=== PATIENT | female | born 1960 | race Caucasian/White ===

== ENCOUNTER 2024-05-31 09:47 | Outpatient (RCR) | payer OTHER, SELFPAY ==
[2024-05-31 10:10] VITALS: BP 160/90
[2024-05-31] MEDS: EVENITY 105 MG SC ×2 (10:23→10:25)
--- NOTE | 2024-05-31 10:36 | PTCARENOTE ---
Patient received first dose Evenity in doctors office. She reports that she developed welts around injection areas 2 days post injection. She took zrytec prior to todays appt. due to this. Patients blood pressure is elevated upon arrival. 180s/90s
on machine and 160s/90s manually. Patient appears anxious about shots today due to not having good experience for first dose. She also states that this happens after having coffee. She has a blood pressure cuff at home and I advised her to check it
once in morning before caffeine and once at night and keep a record. Will keep her thirty minutes post injections today to monitor for any reaction.
--- NOTE | 2024-05-31 10:55 | PTCARENOTE ---
No skin reaction noted 30 minutes post injections. Advised patient to monitor sites and report any reactions, go to ER if any trouble breathing,chest pain or any other signs of allergic reaction that are severe. patient verbalized understanding.
== END 2024-06-03 09:23 | disposition home or self-care (01) ==
LOC: OID 09:47
PROVIDERS: ATTENDING PHYSICIAN Internal Medicine Endocrinology, Diabetes & Metabolism; FAMILY PHYSICIAN Internal Medicine
DX: M81.0 Age-related osteoporosis without current pathological fracture (principal)
CPT/HCPCS: 96372; J3111

== ENCOUNTER 2024-08-02 09:40 | Outpatient (RCR) | payer OTHER, SELFPAY ==
[2024-08-02 10:22] VITALS: BP 148/70
[2024-08-02] MEDS: EVENITY 105 MG SC ×2 (10:39)
== END 2024-08-05 08:39 | disposition home or self-care (01) ==
LOC: OID 09:40
PROVIDERS: ATTENDING PHYSICIAN Internal Medicine Endocrinology, Diabetes & Metabolism; FAMILY PHYSICIAN Internal Medicine
DX: M81.0 Age-related osteoporosis without current pathological fracture (principal)
CPT/HCPCS: 96372; J3111

== ENCOUNTER 2024-09-03 09:50 | Outpatient (RCR) | payer OTHER, SELFPAY ==
[2024-09-03 10:05] VITALS: BP 150/65
[2024-09-03] MEDS: EVENITY 105 MG SC ×2 (10:15)
== END 2024-09-05 23:59 | disposition home or self-care (01) ==
LOC: OID 09:50
PROVIDERS: ATTENDING PHYSICIAN Internal Medicine Endocrinology, Diabetes & Metabolism; FAMILY PHYSICIAN Internal Medicine
DX: M81.0 Age-related osteoporosis without current pathological fracture (principal)
CPT/HCPCS: 96372; J3111

== ENCOUNTER 2024-11-05 09:44 | Outpatient (RCR) | payer OTHER, SELFPAY ==
[2024-10-08 10:00] VITALS: BP 166/73
[2024-10-08] MEDS: EVENITY 105 MG SC ×2 (10:03→10:04)
[2024-11-05 10:23] VITALS: BP 169/84
[2024-11-05 10:32] VITALS: BP 161/82
[2024-11-05] MEDS: EVENITY 105 MG SC ×2 (10:44)
== END 2024-11-05 23:59 | disposition home or self-care (01) ==
LOC: OID 09:44
PROVIDERS: ATTENDING PHYSICIAN Internal Medicine Endocrinology, Diabetes & Metabolism; FAMILY PHYSICIAN Internal Medicine
DX: M81.0 Age-related osteoporosis without current pathological fracture (principal)
CPT/HCPCS: 96372; J3111

== ENCOUNTER 2024-12-03 09:50 | Outpatient (RCR) | payer OTHER, SELFPAY ==
[2024-12-03 10:16] VITALS: BP 112/54
[2024-12-03] MEDS: EVENITY 105 MG SC ×2 (10:26)
== END 2024-12-06 23:59 | disposition home or self-care (01) ==
LOC: OID 09:50
PROVIDERS: ATTENDING PHYSICIAN Internal Medicine Endocrinology, Diabetes & Metabolism; FAMILY PHYSICIAN Internal Medicine
DX: M81.0 Age-related osteoporosis without current pathological fracture (principal)
CPT/HCPCS: 96372; J3111

== ENCOUNTER 2024-12-31 09:45 | Outpatient (RCR) | payer OTHER, SELFPAY ==
[2024-12-31 10:13] VITALS: BP 122/64
[2024-12-31] MEDS: EVENITY 105 MG SC ×2 (10:24)
== END 2025-01-01 08:06 | disposition home or self-care (01) ==
LOC: OID 09:45
PROVIDERS: ATTENDING PHYSICIAN Internal Medicine Endocrinology, Diabetes & Metabolism; FAMILY PHYSICIAN Internal Medicine
DX: M81.0 Age-related osteoporosis without current pathological fracture (principal)
CPT/HCPCS: 96372; J3111

== ENCOUNTER 2025-01-28 09:49 | Outpatient (RCR) | payer OTHER, SELFPAY ==
[2025-01-28 10:07] VITALS: BP 140/78
[2025-01-28] MEDS: EVENITY 105 MG SC ×2 (10:18)
== END 2025-01-29 09:51 | disposition home or self-care (01) ==
LOC: OID 09:49
PROVIDERS: ATTENDING PHYSICIAN Internal Medicine Endocrinology, Diabetes & Metabolism; FAMILY PHYSICIAN Internal Medicine
DX: M81.0 Age-related osteoporosis without current pathological fracture (principal)
CPT/HCPCS: 96372; J3111